=== PATIENT | male | born 1995 | race African-American/Black ===

== ENCOUNTER 2020-05-19 16:45 | Emergency (ER) | payer SELFPAY ==
[2020-05-20 10:57] LABS: SARS-CoV-2 MS2 Positive; SARS-CoV-2 N Gene Negative; SARS-CoV-2 S Gene Negative; SARS-CoV-2 by NAA Not Detected (NotDetected); SARS-CoV-2 orf1ab Negative
== END 2020-05-19 18:15 | disposition home or self-care (01) ==
LOC: ERS 16:45
DX: J02.9 Acute pharyngitis, unspecified (principal); R51.9 Headache, unspecified; R50.9 Fever, unspecified; Z20.828 Contact with and (suspected) exposure to other viral communicable diseases
CPT/HCPCS: 87635; 99283; U0003